=== PATIENT | female | born 1980 | race Caucasian/White ===

== ENCOUNTER 2022-04-04 19:22 | Observation (INO) | payer OTHER, SELFPAY ==
[2022-04-04] VITALS (8 sets, daily range): BP systolic 141–173; BP diastolic 91–105; PULSE 90–105; RESP 18–25; TEMP 36.9–37.1; O2SAT 97–100; BMI 47.5; BMI 48.5
[2022-04-04 19:38] LABS: Microscopic, Urine URINE MICROSCOPIC (MICROSCOPIC)
[2022-04-04 19:41] LABS: Appearance,Urine CLEAR (Clear); Bilirubin,Urine 2+ (Negative); Blood, Urine Negative (Negative); Color,Urine YELLOW (Yellow); Glucose,Urine (UA) 2+ (Negative); Ketones,Urine 3+ (Negative); Leukocyte Esterase,Urine Negative (Negative); Nitrate,Urine Negative (Negative); PH,Urine 5.5 (5.0-8.5); Protein,Urine TRACE (Negative); Specific Gravity, Urine >= 1.030 (1.005-1.030); Urobilinogen,Urine 0.2 EU/dl (0.2)
[2022-04-04 19:45] LABS: Bacteria,Urine Trace /lpf; Urine Pregnancy, HCG Qual. Negative (Negative); WBC,Urine Occasional #/hpf (0-3)
--- NOTE | 2022-04-04 20:01 | CT_ITS ---
PROCEDURE INFORMATION: Exam: CT Abdomen And Pelvis With Contrast Exam date and time: 04/04/2022 8:23 PM Age: 41 years old Clinical indication: Abdominal pain; Generalized; Additional info: Abd pain, patient states she has issues with gallbladder TECHNIQUE: Imaging protocol: Computed tomography of the abdomen and pelvis with contrast. Radiation optimization: All CT scans at this facility use at least one of these dose optimization techniques: automated exposure control; mA and/or kV adjustment per patient size (includes targeted exams where dose is matched to clinical indication); or iterative reconstruction. Contrast material: ISOVUE; Contrast volume: 75 ml; Contrast route: IV; COMPARISON: No relevant prior studies available. FINDINGS: Tubes, catheters and devices: Intrauterine device in place and appears appropriately positioned. Liver: Fatty liver. Gallbladder and bile ducts: Hyperattenuating material layering in the gallbladder compatible with biliary sludge vs non-calcified gallstones. Gallbladder is normally distended. No pericholecystic inflammatory changes. No intra- or extra-hepatic biliary ductal dilation. Pancreas: Unremarkable. Spleen: Unremarkable. Adrenal glands: Unremarkable. Kidneys and ureters: Unremarkable. Stomach and bowel: Colonic diverticulosis without evidence of acute diverticulitis. Appendix: Status post appendectomy. Intraperitoneal space: No free fluid. No pneumoperitoneum. Vasculature: Unremarkable. Lymph nodes: Unremarkable. Urinary bladder: Unremarkable. Reproductive: Unremarkable. Bones/joints: No acute osseous abnormality. Soft tissues: Unremarkable. IMPRESSION: 1. No acute findings in the abdomen or pelvis. 2. Gallbladder contains biliary sludge vs non-calcified gallstones. No evidence of acute cholecystitis. 3. Fatty liver. 4. Colonic diverticulosis without evidence of acute diverticulitis.
[2022-04-04 20:09] LABS: Basophils # 0.1 K/mm3 (0-0.2); Eosinophils # 0.1 K/mm3 (0.0-0.4); Eosinophils % 0.4 % (0.1-12.0); Hematocrit 50.3 % (37.0-47.0); Hemoglobin 16.6 g/dL (12.2-16.2); Lymphocytes # 2.9 K/mm3 (0.7-4.5); Lymphocytes % 21.7 % (10-50); Mean Corpuscular Hemoglobin 30.2 pg (27.0-31.2); Mean Corpuscular Volume 91.6 fl (81-99); Mean Platelet Volume 7.8 fl (7.4-10.4); Monocytes # 0.5 K/mm3 (0.1-1.0); Monocytes % 3.3 % (1.7-9.3); Neutrophils # 9.9 K/mm3 (1.8-7.8); Neutrophils % 73.5 % (37.0-80.0); Platelet Count 424 K/mm3 (142-424); Red Blood Count 5.49 M/mm3 (4.20-5.40); Red Cell Distribution Width 14.1 % (11.5-17.5); White Blood Count 13.5 K/mm3 (4.8-10.8)
[2022-04-04 20:10] LABS: Chloride 103 mmol/L (98-107); Sodium 136 mmol/L (136-145)
[2022-04-04 20:13] LABS: Alanine Aminotransferase 37 U/L (12-78); Albumin Level 5.4 g/dl (3.5-5.0); Albumin/Globulin Ratio 1.5 (1.1-1.8); Alkaline Phosphatase 101 U/L (38-126); Amylase 71 U/L (30-110); Aspartate Amino Transferase 27 U/L (14-36); Bilirubin,Total 0.9 mg/dl (0.2-1.3); Blood Urea Nitrogen 18 mg/dl (7-17); Calcium 9.1 mg/dl (8.4-10.2); Creatinine Clearance Estimated 63 mL/min (50-200); Estimated Glomerular Filt Rate 61 ml/min (>60); GFR (African American) 74 ML/MIN (>60); Globulin 3.7 g/dL (1.3-3.2); Glucose 198 mg/dl (74-100); Lipase 66 U/L (23-300); Total Protein,Serum 9.1 g/dl (6.3-8.2)
[2022-04-04 20:16] LABS: Carbon Dioxide 10 mmol/L (22.0-30.0)
--- NOTE | 2022-04-04 20:17 | PC.NURSE ---
notified eva of critical CO2 10
[2022-04-04 20:19] LABS: C-Reactive Protein 12.2 mg/L (0-4)
--- NOTE | 2022-04-04 20:20 | PC.NURSE ---
Pt gone to RAD via wheelchair
[2022-04-04 20:24] LABS: Coronavirus 19, PCR Not Detected (NotDetected); Influenza A, PCR Not Detected (NotDetected); Influenza B, PCR Not Detected (NotDetected)
[2022-04-04 20:26] LABS: Acetone, Serum (Rapid) Small (None Detect)
--- NOTE | 2022-04-04 20:28 | PC.NURSE ---
Pt back from RAD
[2022-04-04 20:34] LABS: Erythrocyte Sedimentation Rate 6 mm/hr (0-20)
--- NOTE | 2022-04-04 20:34 | PC.NURSE ---
Dr. Toth at BS speaking with pt
--- NOTE | 2022-04-04 20:36 | HMH.EDABDPAI ---
Discharge Plan Disposition Chief Complaint: Abdominal Pain Referrals Follow up/Referrals: Jerry Han MD [Primary Care Provider] - See instructions Clinical Impressions Clinical Impression: DKA (diabetic ketoacidosis) Instructions Patient Instructions: DI for Acute Abdominal Pain Discharge ED Provider: Paulo Toth Abdominal Pain HPI General Chief Complaint: Abdominal Pain Stated Complaint: upper abdm pain and back pain Time Seen by Provider: 04/04/22 20:36 Mode of Arrival: Ambulatory Source of Information: Patient and Medical Record Limitations: No Limitations Description of Symptoms (Recalled from ER Triage Doc. by RN): pt reports that she has a hx of gullstoned and this past week she has had nausea and vomiting and now is unable to eat at all pt reports pain under the rib area in her stomach to pt reports having sulfa burps and now has no appitite History of Present Illness HPI narrative: pt with abd pain with n/v with hx of diabetes mellitus complaint: abdominal pain Onset (ago): day(s) Consistency: constant Location: diffuse Severity: moderate Related Data Allergies Allergy/AdvReac Type Severity Reaction Status Date / Time No Known Allergies Allergy Verified 04/04/22 20:00 [facility] Disclaimer: The information contained in this section may have been updated after the patient was seen, as this information can be updated by other users. Social History Smoking Status: Never smoker alcohol intake: never current occupational status: employed Travel in the last 8 weeks: None ROS Obtained: Yes All systems reviewed & no additional complaints except as documented Physical Exam General General appearance: alert and obese Head Head exam: normocephalic Eye Eye exam: Present PERRL and EOMI ENT ENT exam: Present mucous membranes dry Neck Neck exam: Present trachea midline Respiratory Respiratory exam: Absent respiratory distress Cardiovascular Cardiovascular exam: Present regular rate Abdominal Exam Abdominal exam: Present soft and tenderness; Absent guarding or rebound Abdominal tenderness: Present diffuse and mild Extremities Exam Extremities exam: Present full ROM Neurological Exam Neurological exam: Present alert, oriented X3 and CN II-XII intact Psychiatric Psychiatric exam: Present normal affect Skin Skin exam: Absent rash Medical Decision Making Medical Records Medical records reviewed: Yes I reviewed the patient's medical records. Karsten Inquiry Pt receiving controlled substance: No Vital Signs: 04/04/22 19:23 Temperature 98.7 F Temperature Source Oral Pulse Rate [Left] 105 H Respiratory Rate 18 Blood Pressure [Right Arm] 141/91 H Blood Pressure Mean [Right Arm] 107 02 Sat by Pulse Oximetry 97 Oxygen Delivery Method Room Air Lab Data Lab results reviewed: Yes I reviewed the patient's lab results. Lab Results 04/04/22 19:31: Urine Color Yellow, Urine Appearance Clear, Urine pH 5.5, Ur Specific [place] >= 1.030, Urine Protein Trace, Urine Glucose (UA) 2+, Urine Ketones 3+, Urine Blood Negative, Urine Nitrate Negative, Urine Bilirubin 2+ A, Urine Urobilinogen 0.2, Ur Leukocyte Esterase Negative, Urine RBC 3-5, Urine WBC Occasional, Ur Squamous Epith Cells 3-5, Urine Bacteria Trace 04/04/22 19:31: Urine HCG, Qual Negative 04/04/22 19:45: WBC 13.5 H, RBC 5.49 H, Hgb 16.6 H, Hct 50.3 H, MCV 91.6, MCH 30.2, MCHC 33.0, RDW 14.1, Plt Count 424, MPV 7.8, Neut % (Auto) 73.5, Lymph % (Auto) 21.7, [place] % (Auto) 3.3, Eos % (Auto) 0.4, Baso % (Auto) 1.0, Neut # (Auto) 9.9 H, Lymph # (Auto) 2.9, [place] # (Auto) 0.5, Eos # (Auto) 0.1, Baso # (Auto) 0.1, ESR 6 04/04/22 19:45: Sodium 136, Potassium 5.0, Chloride 103, Carbon Dioxide 10 L, Anion Gap 28.0 H, BUN 18 H, Creatinine 1.00, Estimated Creat Clear 63, Estimated GFR 61, Est GFR ( Amer) 74, Glucose 198 H, Calcium 9.1, Total Bilirubin 0.9, AST 27, ALT 37, Alkaline Phosphatase 101, C-Reactive Protein 12.2 H, Total Prote
--- NOTE | 2022-04-04 20:47 | PC.WOUNDNOTE ---
Patient admitted to [address] Davies with dx of DKA.
[2022-04-04 21:04] LABS: Chloride 104 mmol/L (98-107); Sodium 138 mmol/L (136-145)
[2022-04-04 21:07] LABS: Blood Urea Nitrogen 18 mg/dl (7-17); Creatinine Clearance Estimated 63 mL/min (50-200); Estimated Glomerular Filt Rate 61 ml/min (>60); GFR (African American) 74 ML/MIN (>60)
[2022-04-04 21:08] LABS: Calcium 9.2 mg/dl (8.4-10.2); Glucose 196 mg/dl (74-100)
[2022-04-04 21:26] LABS: Carbon Dioxide 10 mmol/L (22.0-30.0)
[2022-04-04 21:30] LABS: POC Glucose,Bedside 162 (70-110)
--- NOTE | 2022-04-04 21:40 | PC.NURSE ---
Pt arrived to floor via wheelchair @2138.
[2022-04-04 22:18] LABS: Chloride 106 mmol/L (98-107); Sodium 136 mmol/L (136-145)
[2022-04-04 22:19] LABS: Potassium 5.1 mmoL/L (3.5-5.1)
[2022-04-04 22:21] LABS: Blood Urea Nitrogen 17 mg/dl (7-17); Creatinine Clearance Estimated 70 mL/min (50-200); Estimated Glomerular Filt Rate 69 ml/min (>60); GFR (African American) 83 ML/MIN (>60)
[2022-04-04 22:22] LABS: Anion Gap 25.1 mEq/L (5-15); Calcium 8.6 mg/dl (8.4-10.2); Glucose 156 mg/dl (74-100)
[2022-04-04 22:23] LABS: Carbon Dioxide 10 mmol/L (22.0-30.0)
--- NOTE | 2022-04-04 22:40 | EXP.HP ---
History of Present Illness *Admission Date: 04/04/22 *Reason for visit:: nausea and vomiting *History of present illness: this is a 41-year-old female with past medical history of hypertension, diabetes, migraines, POTS who presents emergency department today with complaints of several days of fatigue and nausea vomiting. she reports recently changing over to long-acting insulin from several oral diabetic regimen. She reports starting Toujeo last week. She was taken off her Actos and her metformin recently. She is also doing Trulicity once a week. She also endorses recently starting keto diet and has lost approximately 8 pounds in 1 week. She presents with several days of nausea vomiting and inability to keep oral intake down. She also states on previous CT scan she was noted to have gallstones and thought that this have been a causative agent. She complains of epigastric pain radiating through to her back, tachycardia and dehydration Emergency department work-up notable for elevated anion gap 28, Carbon oxide of 10, glucose of 196, +3 ketones in urine, with serum acetone small. she was noted to be mildly tachycardic on arrival in the low 100s but improved with IV fluids. CT of her abdomen shows Biliary sludge with noncalcified stones, no pericholecystic inflammatory changes noted. Given patient's mild acidosis and continued vomiting and nausea, will admit for further evaluation and management. [facility] Disclaimer: The information contained in this section may have been updated after the patient was seen, as this information can be updated by other users. Medical History Asthma Diabetes mellitus, type 2 Hypertension Surgical History (Updated 04/04/22 @ 21:59 by Merna Camargo RN) History of appendectomy History of section Family History (Updated 04/04/22 @ 22:00 by Merna Camargo RN) Mother Family history of diabetes mellitus type II Family history of hypertension Social History (Updated 04/04/22 @ 21:57 by Merna Camargo RN) Smoking Status: Never smoker alcohol intake: never current occupational status: unemployed Travel in the last 8 weeks: None Review of Systems Constitutional Constitutional: Reports fatigue, Reports poor appetite and Reports lethargy Eyes Eyes: Reports system reviewed and no additional complaints, except as documented ENT Ears, Nose, Mouth, and Throat: Reports system reviewed and no additional complaints, except as documented *Cardiovascular Cardiovascular: Reports rapid heart rate *Respiratory Respiratory: Reports system reviewed and no additional complaints, except as documented *Gastrointestinal Gastrointestinal: Reports nausea and Reports vomiting Comments: Epigastric pain *Genitourinary Genitourinary: Reports system reviewed and no additional complaints, except as documented *Musculoskeletal Musculoskeletal: Reports system reviewed and no additional complaints, except as documented Psychiatric Psychiatric: Reports system reviewed and no additional complaints, except as documented Endocrine Endocrine: Reports fatigue Meds Home Medications and Allergies Home Medications Medication Instructions Recorded Confirmed Type carvedilol 6.25 mg tablet 6.25 mg PO BID Hypertension 04/04/22 04/04/22 History dulaglutide 4.5 mg/0.5 mL 4.5 mg SQ WEEKLY Diabetes 04/04/22 04/04/22 History subcutaneous pen injector (Trulicity) insulin glargine U-300 conc 300 20 unit SQ DAILY Diabetes 04/04/22 04/04/22 History unit/mL (3 mL) subcutaneous pen (Toujeo Max U-300 SoloStar) naltrexone 50 mg tablet 25 mg PO DAILY CHRONIC FATIGUE 04/04/22 04/05/22 History sumatriptan succinate 25 mg tablet 25 mg PO DAILYP PRN migraines 04/04/22 04/04/22 History (Imitrex) diltiazem HCl 120 mg capsule,24 120 mg PO DAILY BLOOD PRESSURE 04/05/22 04/05/22 History hr,extended release metformin 500 mg tablet
[2022-04-05] VITALS (14 sets, daily range): BP systolic 111–157; BP diastolic 54–104; PULSE 76–91; RESP 16–22; TEMP 36.5–37.2; O2SAT 97–99; BMI 48.5
[2022-04-05 00:33] LABS: Chloride 108 mmol/L (98-107); Potassium 5.4 mmoL/L (3.5-5.1); Sodium 137 mmol/L (136-145)
[2022-04-05 00:36] LABS: Anion Gap 24.4 mEq/L (5-15); Blood Urea Nitrogen 15 mg/dl (7-17); Calcium 8.2 mg/dl (8.4-10.2); Creatinine Clearance Estimated 70 mL/min (50-200); Estimated Glomerular Filt Rate 69 ml/min (>60); GFR (African American) 83 ML/MIN (>60); Glucose 144 mg/dl (74-100)
[2022-04-05 00:39] LABS: VBG Base Excess -19.6 mmol/L (-2.4-2.3); VBG HCO3 9.3 mmol/L (23-30); VBG PCO2 27.4 mmol/L (35-51); VBG Total CO2 10.1 mmol/L (23-27)
[2022-04-05 00:43] LABS: VBG PH 7.15 mmol/L (7.31-7.41)
[2022-04-05 00:48] LABS: Carbon Dioxide 10 mmol/L (22.0-30.0)
--- NOTE | 2022-04-05 01:00 | PC.NURSE ---
Catia Gardner states to start insulin gtt at 2u and increase d5 to 150ml/hr at this time.
[2022-04-05 02:30] LABS: Chloride 109 mmol/L (98-107)
[2022-04-05 02:31] LABS: Potassium 4.5 mmoL/L (3.5-5.1); Sodium 136 mmol/L (136-145)
[2022-04-05 02:33] LABS: Blood Urea Nitrogen 14 mg/dl (7-17); Creatinine Clearance Estimated 90 mL/min (50-200); Estimated Glomerular Filt Rate 92 ml/min (>60); GFR (African American) 111 ML/MIN (>60)
[2022-04-05 02:34] LABS: Anion Gap 22.5 mEq/L (5-15); Glucose 153 mg/dl (74-100)
[2022-04-05 02:38] LABS: Carbon Dioxide 9 mmol/L (22.0-30.0)
--- NOTE | 2022-04-05 03:35 | PC.NURSE ---
Catia Gardner states to hold NS @ 125ml/hr at this time.
[2022-04-05 04:24] LABS: POC Glucose,Bedside 156 (70-110)
[2022-04-05 04:24] LABS: POC Glucose,Bedside 138 (70-110)
[2022-04-05 04:24] LABS: POC Glucose,Bedside 120 (70-110)
[2022-04-05 04:24] LABS: POC Glucose,Bedside 146 (70-110)
[2022-04-05 04:24] LABS: POC Glucose,Bedside 155 (70-110)
[2022-04-05 04:24] LABS: POC Glucose,Bedside 137 (70-110)
[2022-04-05 04:24] LABS: POC Glucose,Bedside 134 (70-110)
[2022-04-05 04:38] LABS: Anion Gap 17.6 mEq/L (5-15); Blood Urea Nitrogen 12 mg/dl (7-17); Calcium 7.8 mg/dl (8.4-10.2); Chloride 111 mmol/L (98-107); Creatinine Clearance Estimated 90 mL/min (50-200); Estimated Glomerular Filt Rate 92 ml/min (>60); GFR (African American) 111 ML/MIN (>60); Glucose 136 mg/dl (74-100); Potassium 4.6 mmoL/L (3.5-5.1); Sodium 134 mmol/L (136-145)
[2022-04-05 04:42] LABS: Carbon Dioxide 10 mmol/L (22.0-30.0)
--- NOTE | 2022-04-05 05:37 | PC.NURSE ---
Shift summary: Pt has not voiced any c/o to staff. Insulin continues at 2u/hr. D5 1/2 NS running at 150 ml/hr. No n/v noted t/o shift. Call light within reach.
[2022-04-05 06:21] LABS: Basophils # 0.1 K/mm3 (0-0.2); Basophils % 1.4 % (0.1-2.0); Eosinophils # 0.1 K/mm3 (0.0-0.4); Eosinophils % 1.3 % (0.1-12.0); Hematocrit 40.9 % (37.0-47.0); Lymphocytes # 2.8 K/mm3 (0.7-4.5); Lymphocytes % 32.8 % (10-50); Mean Corpuscular HGB Conc 33.4 g/dL (31.8-35.4); Mean Corpuscular Hemoglobin 29.8 pg (27.0-31.2); Mean Corpuscular Volume 89.2 fl (81-99); Mean Platelet Volume 7.6 fl (7.4-10.4); Monocytes # 0.5 K/mm3 (0.1-1.0); Monocytes % 5.2 % (1.7-9.3); Neutrophils # 5.1 K/mm3 (1.8-7.8); Neutrophils % 59.2 % (37.0-80.0); Platelet Count 339 K/mm3 (142-424); Red Blood Count 4.59 M/mm3 (4.20-5.40); Red Cell Distribution Width 14.2 % (11.5-17.5); White Blood Count 8.6 K/mm3 (4.8-10.8)
[2022-04-05 06:25] LABS: Hemoglobin 13.7 g/dL (12.2-16.2)
[2022-04-05 06:35] LABS: Blood Urea Nitrogen 12 mg/dl (7-17); Calcium 7.9 mg/dl (8.4-10.2); Carbon Dioxide 14 mmol/L (22.0-30.0); Chloride 111 mmol/L (98-107); Chol/HDL Ratio 4.6 (1-3.5); Cholesterol 180 mg/dl (140-200); Creatinine Clearance Estimated 90 mL/min (50-200); Estimated Glomerular Filt Rate 92 ml/min (>60); GFR (African American) 111 ML/MIN (>60); Glucose 137 mg/dl (74-100); HDL Cholesterol 39 mg/dl (40-60); Magnesium 2.2 mg/dl (1.6-2.3); Sodium 134 mmol/L (136-145); Triglycerides 171 mg/dl (30-150); VLDL Cholesterol 34 mg/dL (0-40)
[2022-04-05 06:45] LABS: Direct LDL Cholesterol 96.02 mg/dL (100-129)
[2022-04-05 06:52] LABS: Procalcitonin 0.056 ng/mL (0.0-2.0)
[2022-04-05 07:21] LABS: POC Glucose,Bedside 137 (70-110)
[2022-04-05 07:21] LABS: POC Glucose,Bedside 144 (70-110)
[2022-04-05 07:21] LABS: POC Glucose,Bedside 135 (70-110)
[2022-04-05 08:27] LABS: POC Glucose,Bedside 134 (70-110)
--- NOTE | 2022-04-05 09:39 | ECG_ITS ---
APPROVED REPORT Exam: Resting ECG HR:82 bpm ECG Measurements Heart Rate 82 AXES IL 155 P 50 QRSd 88 QRS 39 QT 380 T 53 QTc 419 Conclusion SINUS RHYTHM NONSPECIFIC T-WAVE ABNORMALITY BORDERLINE ECG UNCONFIRMED REPORT Electronically signed by : Gwyn Maldonado MD 04/06/2022 20:16:36
[2022-04-05 10:26] LABS: POC Glucose,Bedside 125 (70-110)
[2022-04-05 10:58] LABS: Anion Gap 13.9 mEq/L (5-15); Blood Urea Nitrogen 10 mg/dl (7-17); Calcium 7.9 mg/dl (8.4-10.2); Carbon Dioxide 15 mmol/L (22.0-30.0); Chloride 111 mmol/L (98-107); Creatinine Clearance Estimated 90 mL/min (50-200); Estimated Glomerular Filt Rate 92 ml/min (>60); GFR (African American) 111 ML/MIN (>60); Glucose 130 mg/dl (74-100); Potassium 3.9 mmoL/L (3.5-5.1); Sodium 136 mmol/L (136-145)
--- NOTE | 2022-04-05 11:14 | PC.NURSE ---
Spoke with Dr triana face to face. notified him that pt has had 2 consecutive anion gap that were less than 16. (13.0 and 13.9). pt has received a total of 12 units of insulin in the last 6 hours. per md start lantus 10 units daily and start pt on low intensity sliding scale insulin. dc insulin drip, change ivf to ns @ 100. start clear liquid diet
--- NOTE | 2022-04-05 11:33 | EXP.PN ---
Subjective *Date: 04/05/22 *Time: 11:33 Interval history: Date of service April 05, 2022 The patient reports that she is feeling better from admission. She is accompanied by her and teenage daughter. I am accompanied by her nurse Sydnee today. Nursing staff report that she remains afebrile with stable vital signs and saturating appropriately on room air. Patient is inquiring about something to eat. We have reviewed and discussed her laboratory results. She has had 2 anion gap's approximately 6 hours apart that identified normal results. Her morning CBC identifies a normal white blood cell count, hemoglobin 13.7, platelets 339. Her morning electrolytes have improved with a normal potassium 3.9 and creatinine 0.7. Her glucose trend has improved. Her magnesium is normal. Her lipase and procalcitonin are normal. Exam Data for Last 24 hours Vital signs and Labs for Last 24 Hours: Temp Pulse Resp BP Pulse Ox 98.1 F 79 20 132/89 97 04/05/22 07:40 04/05/22 10:30 04/05/22 10:30 04/05/22 10:30 04/05/22 10:30 Laboratory Results - last 24 hr 04/04/22 19:31: Urine Color Yellow, Urine Appearance Clear, Urine pH 5.5, Ur Specific [place] >= 1.030, Urine Protein Trace, Urine Glucose (UA) 2+, Urine Ketones 3+, Urine Blood Negative, Urine Nitrate Negative, Urine Bilirubin 2+ A, Urine Urobilinogen 0.2, Ur Leukocyte Esterase Negative, Urine RBC 3-5, Urine WBC Occasional, Ur Squamous Epith Cells 3-5, Urine Bacteria Trace 04/04/22 19:31: Urine HCG, Qual Negative 04/04/22 19:45: WBC 13.5 H, RBC 5.49 H, Hgb 16.6 H, Hct 50.3 H, MCV 91.6, MCH 30.2, MCHC 33.0, RDW 14.1, Plt Count 424, MPV 7.8, Neut % (Auto) 73.5, Lymph % (Auto) 21.7, [place] % (Auto) 3.3, Eos % (Auto) 0.4, Baso % (Auto) 1.0, Neut # (Auto) 9.9 H, Lymph # (Auto) 2.9, [place] # (Auto) 0.5, Eos # (Auto) 0.1, Baso # (Auto) 0.1, ESR 6 04/04/22 19:45: Sodium 136, Potassium 5.0, Chloride 103, Carbon Dioxide 10 L, Anion Gap 28.0 H, BUN 18 H, Creatinine 1.00, Estimated Creat Clear 63, Estimated GFR 61, Est GFR ( Amer) 74, Glucose 198 H, Calcium 9.1, Total Bilirubin 0.9, AST 27, ALT 37, Alkaline Phosphatase 101, C-Reactive Protein 12.2 H, Total Protein 9.1 H, Albumin 5.4 H, Globulin 3.7 H, Albumin/Globulin Ratio 1.5, Amylase 71, Lipase 66 04/04/22 19:45: Acetone Level Small 04/04/22 19:45: Sodium 138, Potassium 5.0, Chloride 104, Carbon Dioxide 10 L, Anion Gap 29.0 H, BUN 18 H, Creatinine 1.00, Estimated Creat Clear 63, Estimated GFR 61, Est GFR ( Amer) 74, Glucose 196 H, Calcium 9.2 04/04/22 20:20: SARS-CoV-2 (PCR) Not detected, Influenza A Untype (PCR) Not detected, Influenza Type B (PCR) Not detected 04/04/22 21:22: POC Glucose 162 H 04/04/22 21:47: POC Glucose 156 H 04/04/22 22:12: Sodium 136, Potassium 5.1, Chloride 106, Carbon Dioxide 10 L, Anion Gap 25.1 H, BUN 17, Creatinine 0.90, Estimated Creat Clear 70, Estimated GFR 69, Est GFR ( Amer) 83, Glucose 156 H D, Calcium 8.6 04/04/22 23:18: POC Glucose 120 H 04/05/22 00:00: VBG pH 7.15 L, VBG pCO2 27.4 L, VBG pO2 102.0 H, VBG HCO3 9.3 L, VBG Total CO2 10.1 L, VBG O2 Saturation 97.0 H, VBG Base Excess -19.6 L 04/05/22 00:20: POC Glucose 138 H 04/05/22 00:23: Sodium 137, Potassium 5.4 H, Chloride 108 H, Carbon Dioxide 10 L, Anion Gap 24.4 H, BUN 15, Creatinine 0.90, Estimated Creat Clear 70, Estimated GFR 69, Est GFR ( Amer) 83, Glucose 144 H, Calcium 8.2 L 04/05/22 01:11: POC Glucose 146 H 04/05/22 02:03: Sodium 136, Potassium 4.5, Chloride 109 H, Carbon Dioxide 9 L*, Anion Gap 22.5 H, BUN 14, Creatinine 0.70 D, Estimated Creat Clear 90, Estimated GFR 92, Est GFR ( Amer) 111 D, Glucose 153 H, Calcium 8.0 L 04/05/22 02:04: POC Glucose 155 H 04/05/22 03:07: POC Glucose 137 H 04/05/22 04:07: Sodium 134 L, Potassium 4.6, Chloride 111 H, Carbon Dioxide 10 L D, Anion Gap 17.6 H, BUN 12, Creatinine 0.70, Estimated Creat Clear 90, Estimated GFR 92, Est GFR ( Amer) 111, Glucose 136 H, Calcium 7.8 L 04/05/22 04:17: POC Glu
--- NOTE | 2022-04-05 12:06 | PC.NURSE ---
notified md at 1145 that pt c/o migraine headache. states she takes imitrex at home. per md reorder pt home imitrex (imitrex 50mg po daily prn headache) and pt may be transferred out of stepdown.
[2022-04-05 17:06] LABS: POC Glucose,Bedside 85 (70-110)
[2022-04-05 20:41] LABS: POC Glucose,Bedside 98 (70-110)
[2022-04-06] VITALS: PULSE 80
[2022-04-06 04:00] VITALS: BP 122/67; PULSE 70; PULSE 76; RESP 16; TEMP 36.6; O2SAT 97; BMI 49.5
--- NOTE | 2022-04-06 05:28 | PC.NURSE ---
No acute changes this shift. Pt fsbs have been in the 90s this shift. No discomfort this shift. Pt states she feels good and is ready to go home. VSS at this time. No difficulty with urination. No BM this shift. Call light within reach.
[2022-04-06 05:49] LABS: POC Glucose,Bedside 95 (70-110)
[2022-04-06 06:14] LABS: Anion Gap 14.9 mEq/L (5-15); Blood Urea Nitrogen 7 mg/dl (7-17); Calcium 7.7 mg/dl (8.4-10.2); Carbon Dioxide 15 mmol/L (22.0-30.0); Chloride 113 mmol/L (98-107); Creatinine Clearance Estimated 105 mL/min (50-200); Estimated Glomerular Filt Rate 110 ml/min (>60); GFR (African American) 133 ML/MIN (>60); Glucose 90 mg/dl (74-100); Potassium 3.9 mmoL/L (3.5-5.1); Sodium 139 mmol/L (136-145)
--- NOTE | 2022-04-06 07:29 | EXP.DC.SUM ---
General Admission date:: 04/04/22 Discharge date: 04/06/22 HPI HPI HPI: 41-year-old female with past medical history of hypertension, diabetes, migraines, DAGOBERTO, POTS who presents emergency department today with complaints of several days of fatigue with nausea and vomiting. she reports recently changing over to long-acting insulin from several oral diabetic regimen. She reports starting Toujeo last week. She was taken off her Actos and her metformin recently. She is also doing Trulicity once a week. She also endorses recently starting keto diet and has lost approximately 8 pounds in 1 week. She presents with several days of nausea vomiting and inability to keep oral intake down. She also states on previous CT scan she was noted to have gallstones and thought that this have been a causative agent. She complains of epigastric pain radiating through to her back, tachycardia and dehydration. Emergency department work-up notable for elevated anion gap 28, Carbon oxide of 10, glucose of 196, +3 ketones in urine, with serum acetone small. she was noted to be mildly tachycardic on arrival in the low 100s but improved with IV fluids. CT of her abdomen shows Biliary sludge with noncalcified stones, no pericholecystic inflammatory changes noted. The patient was admitted to the hospitalist service with IV insulin for her diabetic ketoacidosis diagnoses. Hospital Course Hospital Course Hospital Course: The patient was admitted to the medical unit with telemetry monitoring. She was maintained on IV insulin with IV fluid resuscitation and routine electrolyte, magnesium and creatinine evaluations. She was prescribed IV antiemetics. She was maintained n.p.o. Her anion gap returned normal x2 and her IV insulin was transitioned to basal and sliding scale with a carbohydrate controlled diet. She tolerated her diet with no further emesis. Her labs and inflammatory markers were trended and identified stability. She identified improvement and inquired about discharge home. She is instructed to follow-up with her PCP in 1 week and consultants as scheduled. I spent 35 minutes in [id number] time with the patient and nursing staff concerning the discharge process. We discussed the admitting diagnoses and hospital course. We discussed identified improvement and the patient's desire to be discharged. We reviewed inpatient studies and imaging. The patient voiced understanding on the importance of follow-up with her primary care provider and specialist(s). The patient plans to be compliant with the medication regimen prescribed and follow-up appointments. She understands that she can return to the emergency department with any sudden changes or concerns. Exam Data for Last 24 hours Vital signs and Labs for Last 24 Hours: Temp Pulse Resp BP Pulse Ox 97.9 F 76 16 122/67 97 04/06/22 04:00 04/06/22 04:00 04/06/22 04:00 04/06/22 04:00 04/06/22 04:00 Laboratory Results - last 24 hr 04/05/22 08:12: POC Glucose 134 H 04/05/22 10:03: Sodium 136, Potassium 3.9, Chloride 111 H, Carbon Dioxide 15 L, Anion Gap 13.9, BUN 10, Creatinine 0.70, Estimated Creat Clear 90, Estimated GFR 92, Est GFR ( Amer) 111, Glucose 130 H, Calcium 7.9 L 04/05/22 10:19: POC Glucose 125 H 04/05/22 16:59: POC Glucose 85 04/05/22 20:03: POC Glucose 98 04/06/22 05:26: Sodium 139, Potassium 3.9, Chloride 113 H, Carbon Dioxide 15 L, Anion Gap 14.9, BUN 7 D, Creatinine 0.60, Estimated Creat Clear 105, Estimated GFR 110, Est GFR ( Amer) 133, Glucose 90 D, Calcium 7.7 L, Magnesium 2.0 04/06/22 05:31: POC Glucose 95 I & O for Last 24 hours: Intake & Output 04/03/22 04/04/22 04/05/22 04/06/22 23:59 23:59 23:59 23:59 Intake Total 2200 / 2200 Output Total 350 / 350 Balance 1850 / 1850 Weight 128.911 kg 128.911 kg 131.678 kg Constitutional Constitutional: no acute distress, morbidly obese and cooperative *Routine HEENT Exam Head: Present normoce
[2022-04-06 08:00] VITALS: BP 145/85; PULSE 80; PULSE 82; RESP 20; TEMP 37.1; O2SAT 98
[2022-04-06 09:00] VITALS: PULSE 82; O2SAT 98
--- NOTE | 2022-04-06 09:20 | P.CONPHA_ITS ---
Pharmacy Intervention Comments: Met with patient at bedside to certified personal finance counselor patient on discharge medications prior to discharge. Overviewed continued medications, including indications and possible adverse effects/mitigation strategies. Patient expressed concern regarding diarrhea with metformin and stated she plans to follow up with PCP. Reported that she crushes her naltrexone tablet in water and takes 4.5 mg a day (low- dose) for chronic fatigue. Patient verbalized understanding of information provided and had no other questions or concerns at this time. -Fabi Vincent, PharmD Candidate 2022
--- NOTE | 2022-04-07 12:29 | CARE MANAGER ---
Contacted patient who states she is doing well since hospital discharge. She is aware of her follow up appointment and denies any questions or concerns. JOSEPH Fernandez
== END 2022-04-06 09:50 | disposition home or self-care (01) ==
LOC: ER 19:31 → 2ND 21:02
PROVIDERS: Nurse Practitioner Acute Care; Student in an Organized Health Care Education/Training Program; Admitting Provider Family Medicine; Emergency Provider Emergency Medicine; PCP Family Medicine; Visit Provider Family Medicine
DX: E11.10 Type 2 diabetes mellitus with ketoacidosis without coma (principal); I10 Essential (primary) hypertension; G47.33 Obstructive sleep apnea (adult) (pediatric); G43.909 Migraine, unspecified, not intractable, without status migrainosus; E66.01 Morbid (severe) obesity due to excess calories; Z68.42 Body mass index [BMI] 45.0-49.9, adult; Z79.899 Other long term (current) drug therapy; Z79.4 Long term (current) use of insulin; G90.A Postural orthostatic tachycardia syndrome [POTS]; Z20.822 Contact with and (suspected) exposure to COVID-19
CPT/HCPCS: 36415; 74177; 80048; 80053; 80061; 81001; 81025; 82009; 82150; 82803; 82962; 83690; 83735; 84145; 85025; 85651; 86140; 93005; 99285; C9803; G0378; J2405; Q9967; U0003; U0005

== ENCOUNTER → 2022-04-13 11:10 | Outpatient (CLI) | payer OTHER, SELFPAY ==
[2022-04-13 19:24] LABS: Creatinine,Urine Random 56 mg/dL (Not Estab.)
[2022-04-13 19:25] LABS: Alanine Aminotransferase 33 U/L (12-78); Albumin Level 4.4 g/dl (3.5-5.0); Albumin/Globulin Ratio 1.6 (1.1-1.8); Alkaline Phosphatase 82 U/L (38-126); Anion Gap 11.5 mEq/L (5-15); Aspartate Amino Transferase 27 U/L (14-36); Bilirubin,Total 0.3 mg/dl (0.2-1.3); Blood Urea Nitrogen 12 mg/dl (7-17); Calcium 9.1 mg/dl (8.4-10.2); Carbon Dioxide 29 mmol/L (22.0-30.0); Chloride 103 mmol/L (98-107); Estimated Glomerular Filt Rate 92 ml/min (>60); GFR (African American) 111 ML/MIN (>60); Globulin 2.8 g/dL (1.3-3.2); Glucose 138 mg/dl (74-100); Potassium 4.5 mmoL/L (3.5-5.1); Sodium 139 mmol/L (136-145); Total Protein,Serum 7.2 g/dl (6.3-8.2)
[2022-04-13 19:26] LABS: Microalbumin < 6.000 mg/L (0-16.7)
== END ==
PROVIDERS: PCP Nurse Practitioner; Visit Provider Nurse Practitioner
DX: E11.9 Type 2 diabetes mellitus without complications (principal)
CPT/HCPCS: 80053; 82043; 82570

== ENCOUNTER → 2022-04-14 01:00 | Outpatient (CLI) | payer OTHER, SELFPAY ==
[2022-04-14 18:34] LABS: Basophils # 0.1 K/mm3 (0-0.2); Basophils % 1.7 % (0.1-2.0); Eosinophils # 0.1 K/mm3 (0.0-0.4); Eosinophils % 1.6 % (0.1-12.0); Hematocrit 43.9 % (37.0-47.0); Hemoglobin 14.5 g/dL (12.2-16.2); Lymphocytes # 2.5 K/mm3 (0.7-4.5); Lymphocytes % 38.5 % (10-50); Mean Corpuscular Hemoglobin 29.5 pg (27.0-31.2); Mean Corpuscular Volume 89.4 fl (81-99); Mean Platelet Volume 8.3 fl (7.4-10.4); Monocytes # 0.3 K/mm3 (0.1-1.0); Monocytes % 4.3 % (1.7-9.3); Neutrophils # 3.6 K/mm3 (1.8-7.8); Neutrophils % 53.9 % (37.0-80.0); Platelet Count 394 K/mm3 (142-424); Red Cell Distribution Width 14.3 % (11.5-17.5); White Blood Count 6.6 K/mm3 (4.8-10.8)
[2022-04-14 18:59] LABS: Thyroid Stimulating Hormone 0.88 uIU/mL (0.465-4.68)
[2022-04-14 19:19] LABS: Vitamin B12 998 pg/mL (239-931)
== END ==
PROVIDERS: PCP Family Medicine; Visit Provider Family Medicine
DX: U09.9 Post COVID-19 condition, unspecified (principal)
CPT/HCPCS: 82607; 84443; 85025